=== PATIENT | female | born 1955 | race American Indian/Alaskan Native ===

== ENCOUNTER 2018-03-22 12:18 | Emergency (ER) | payer MEDICARE ==
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
[2018-03-22] MEDS ORDERED: ADRENALIN ONE (21:35)
[2018-03-22] MEDS ORDERED: CALCIUM CHLORIDE IV ONE (21:35)
== END 2018-03-22 13:00 ==
LOC: ED 12:18
DX: I46.9 Cardiac arrest, cause unspecified (principal); J96.00 Acute respiratory failure, unspecified whether with hypoxia or hypercapnia
CPT/HCPCS: 31500; 36680; 82962; 92950; 99285; J0171